=== PATIENT | male | born 1980 | race African-American/Black ===

== ENCOUNTER 2019-04-17 18:11 | Emergency (ER) | payer SELFPAY ==
[~2019-04-17] VITALS: Ht 175.3 cm; Wt 90.7 kg
[2019-04-17 18:19] VITALS: BP_SYST 158
[2019-04-17] MEDS ORDERED: ZIPRASIDONE HCL 20 MG CAPSULE (GEODON) PO ONE (18:30)
[2019-04-17 19:16] VITALS: BP_SYST 158
== END 2019-04-17 19:16 ==
LOC: SED 18:11
DX: M25.511 Pain in right shoulder (principal); F20.9 Schizophrenia, unspecified; F15.10 Other stimulant abuse, uncomplicated
CPT/HCPCS: 73030; 93005; 99283